=== PATIENT | female | born 1995 | race Two or more races ===

== ENCOUNTER 2024-09-29 09:29 | Emergency (ER) | payer OTHER ==
[~2024-09-29] VITALS: Ht 175.3 cm; Wt 113.4 kg
[2024-09-29 11:12] LABS: BASO % 0.5 % (0.1-1.2); EOS # 0.14 (0.04-0.54); EOS % 1.4 % (0.7-7.0); LYMPH # 1.60 (1.18-3.74); LYMPH % 16.0 % (19.3-53.1); MEAN PLATELET VOLUME 9.40 fl (9.4-12.4); MONO # 0.82 (0.24-0.82); MONO % 8.2 % (4.7-12.5); NEUT # 7.39 (1.56-6.13); NEUT % 73.6 % (34.0-71.1); RED CELL DISTRIBUTION WIDTH 13.0 % (11.6-14.4)
[2024-09-29 12:01] LABS: BUN CREA RATIO 15.0 (7.0-25.0); CREATININE SERUM 0.68 mg/dL (0.55-1.02); GFR 101.59; GLUCOSE FASTING 84.0 mg/dL (65-100); OSMOLALITY SERUM 276.0 MOSM/KG (275-295)
[2024-09-29 12:02] LABS: HCG QUANTITATIVE 42457.0 mUI/mL (1-3)
[2024-09-29 14:35] LABS: URINE APPEARANCE Clear; URINE BACTERIA 86.4 uL (0.0-1933); URINE BILIRRUBIN Negative (NEGATIVE); URINE BLOOD Negative; URINE COLOR Yellow; URINE EPITHELIAL CELLS 5.3 uL (0.0-38.8); URINE GLUCOSE Negative (NEGATIVE); URINE LEUKOCYTE Negative; URINE NITRATE Negative; URINE PROTEIN Negative (NEGATIVE); URINE RBC 6.1 uL (0.0-20.8); URINE UROBILINOGEN 0.2 E.U./dl; URINE WBC 3.5 uL (0.0-23.2)
[2024-09-29 14:54] LABS: URINE CAST 0.29 uL (0.0-1.40); URINE KETONE 80 (NEGATIVE)
== END 2024-09-29 15:42 | disposition home or self-care (01) ==
LOC: ER 09:29
PROVIDERS: Emergency Medicine
DX: O20.9 Hemorrhage in early pregnancy, unspecified (principal); Z3A.12 12 weeks gestation of pregnancy

== ENCOUNTER 2024-11-27 09:05 | Outpatient (CLI) | payer OTHER | END 2024-11-27 09:06 | disposition home or self-care (01) | LOC: PRENATAL 09:05 | PROVIDERS: ATTEND Obstetrics & Gynecology Maternal & Fetal Medicine | DX: O44.00 Complete placenta previa NOS or without hemorrhage, unspecified trimester (principal); Z3A.20 20 weeks gestation of pregnancy ==